=== PATIENT | female | born 1940 | race Hispanic/Latino ===

== ENCOUNTER 2022-08-11 11:27 | Emergency (ER) | payer OTHER ==
[~2022-08-11] VITALS: Ht 157.5 cm; Wt 64.4 kg
[2022-08-11] MEDS ORDERED: MORPHINE 4 MG SYG IVP ONE (14:30)
[2022-08-11] MEDS ORDERED: ONDANSETRON 4MG INJ IVP ONE (14:30)
[2022-08-11 15:29] VITALS: BP 150/66
[2022-08-11] MEDS ORDERED: HYDROCODONE/ACETAMINOPHEN 5/325 MG TAB PO ONE (16:30)
[2022-08-11] MEDS ORDERED: ACET-2079 PO (16:47)
[2022-08-11] MEDS ORDERED: DOCU-116 PO (16:50)
== END 2022-08-11 17:00 | disposition home or self-care (01) ==
LOC: EDH 11:27
DX: S42.301A Unspecified fracture of shaft of humerus, right arm, initial encounter for closed fracture (principal); Z98.890 Other specified postprocedural states; W18.30XA Fall on same level, unspecified, initial encounter; Y93.89 Activity, other specified; Y92.89 Other specified places as the place of occurrence of the external cause; Y99.8 Other external cause status
CPT/HCPCS: 99284; 96374; 29105; 96375; 73030; J2405; J2270